=== PATIENT | female | born 1975 | race Caucasian/White ===

== ENCOUNTER 2021-12-24 20:20 | Emergency (ER) | payer MEDICARE, MEDICAID ==
[~2021-12-24] VITALS: Ht 154.9 cm; Wt 77.2 kg
[2021-12-24 20:24] VITALS: TEMP 98.2
[2021-12-24] MEDS ORDERED: PROVENTIL0.09 MG/A1 IH (22:03)
[2021-12-24] MEDS ORDERED: PREDNISONE50 MG PO (22:03)
[2021-12-24] MEDS ORDERED: ZITHROMAX500 M2 PO (22:03)
[2021-12-24 22:20] VITALS: BP 122/79; PULSE 103
== END 2021-12-24 22:20 | disposition home or self-care (01) ==
LOC: COL.ER 20:20
DX: J44.1 Chronic obstructive pulmonary disease with (acute) exacerbation (principal); J01.90 Acute sinusitis, unspecified; F17.210 Nicotine dependence, cigarettes, uncomplicated; Z28.310 Unvaccinated for COVID-19; Z88.0 Allergy status to penicillin
CPT/HCPCS: J7512

== ENCOUNTER 2023-12-13 10:18 | Day surgery (SDC) | payer MEDICARE, MEDICAID ==
[~2023-12-13] VITALS: Ht 154.9 cm; Wt 77.5 kg
[~2023-12-13 10:18] MED LIST: LR 1,000 ML IV SCH; PREDNISONE20 MG PO; PREDNISONE50 MG PO; PROVENTIL0.09 MG/A1 IH; ZITHROMAX500 M2 PO
[2023-12-13] MEDS ORDERED: BREZTRI AEROS10.7 GM IH (11:24)
[2023-12-13] MEDS ORDERED: ZOFRAN8 MG PO (11:25)
[2023-12-13] MEDS ORDERED: ADVIL200 MG PO (11:26)
[2023-12-13 11:33] VITALS: BP 134/67; PULSE 81; TEMP 98
--- NOTE | 2023-12-13 11:45 | NUR ---
Pt admitted to [facility], admission assessments complete. Consents signed. Pt signs waiver for test, reports that their is no chance she could be . Pt's partner at bedside. 20G IV inserted into right hand, LR infusing as ordered. Medications, allergies, and pharmacy confirmed. Questions answered. Cart in low position, call light within reach. Warm blanket given. Pt tearful at times, tissues and reassurance given.
[2023-12-13] MEDS ORDERED: diazePAM 10 MG TAB PO ONE (12:45)
[2023-12-13] MEDS ORDERED: fentaNYL 50 MCG/ML 2 ML VIAL ONE ×2 (13:14→15:02)
[2023-12-13] MEDS ORDERED: Lidocaine PF 2% (20 MG/ML) 5 ML VIAL ONE (13:14)
[2023-12-13] MEDS ORDERED: Ondansetron 4 MG/2 ML VIAL ONE (13:15)
[2023-12-13] MEDS ORDERED: NS 10 ML IV ONE (13:15)
[2023-12-13] MEDS ORDERED: Glycopyrrolate 0.2 MG/ML 1 ML VIAL ONE ×2 (13:15)
[2023-12-13] MEDS ORDERED: dexAMETHasone 10 MG/ML VIAL ONE (13:15)
[2023-12-13] MEDS ORDERED: Ketorolac 30 MG/ML VIAL ONE (13:15)
--- NOTE | 2023-12-13 13:17 | NUR ---
Patient becomes very upset regarding delay in surgery. Crying and yellowing. Significant other remains at bedside. Anesthesia and Periop Board Handler James in to speak with patient extensively. Orders for valium noted, see EMAR. Pt encouraged to rest with eyes shut and attempt to sleep. Reassurance and support given. Call light within reach.
[2023-12-13] MEDS ORDERED: Topical Skin Adhesive 1 EACH (1 ML) TOP ONE (14:36)
[2023-12-13] MEDS ORDERED: fentaNYL 50 MCG/ML 1 ML SYRINGE/VIAL [PACU/SDC ONLY] IV PRN (14:45)
[2023-12-13] MEDS ORDERED: HYDROmorphone 1 MG/1 ML SYRINGE [PACU/SDC ONLY] IV PRN (14:45)
[2023-12-13] MEDS ORDERED: Ondansetron 4 MG/2 ML VIAL IV PRN ×2 (14:45→15:45)
[2023-12-13] MEDS ORDERED: NORCO 325 MG-51 TAB PO (15:37)
[2023-12-13] MEDS ORDERED: Ibuprofen 600 MG TAB PO PRN (15:45)
[2023-12-13 16:10] VITALS: BP 140/71; PULSE 81
[2023-12-13 16:25] VITALS: BP 132/68; PULSE 78
[2023-12-13 16:34] VITALS: BP 126/70; PULSE 76; TEMP 97.4
--- NOTE | 2023-12-13 17:02 | NUR ---
1610- RECIEVED PT FROM BUSHWALKING GUIDE. VS OBTAINED. UNABLE TO ASSESS PT PAIN PT STATED SHE DID NOT KNOW HOW TO RATE PAIN. TOLEARTING SIPS OF WATER AND HAVING INCREASED COUGHING. 1625- PEANUT BUTTER AND CRACKERS GIVEN. AT BEDSIDE. PT REQUESTING TO DISCHARGE. 1633- IV REMOVED AND HELPED PT UP TO VOID. 1650- DISCHARGE TEACHING DONE WITH PT AND . ALL QUESTIONS ANSWERED. 1700- PT DISCHARGED FROM FACILITY VIA WHEELCHAIR TO PRIVATE VEHCILE DRIVEN BY SPOUSE.
== END 2023-12-13 17:00 ==
LOC: SDCO 10:18
DX: C44.509 Unspecified malignant neoplasm of skin of other part of trunk (principal); C77.9 Secondary and unspecified malignant neoplasm of lymph node, unspecified; C79.89 Secondary malignant neoplasm of other specified sites; F17.210 Nicotine dependence, cigarettes, uncomplicated
CPT/HCPCS: C1788; J0690; J1100; J1885; J2405; J2704; J3010; J7120

== ENCOUNTER 2024-01-12 21:02 | Emergency (ER) | payer MEDICARE, MEDICAID ==
[~2024-01-12] VITALS: Ht 154.9 cm; Wt 78.6 kg
[~2024-01-12 21:02] MED LIST changes: +ADVIL200 MG PO; +BREZTRI AEROS10.7 GM IH; -LR 1,000 ML IV SCH; +NORCO 325 MG-51 TAB PO; +ZOFRAN8 MG PO
[2024-01-12 21:09] VITALS: TEMP 98.3
[2024-01-12] MEDS ORDERED: Albuterol 0.083% Neb Soln 2.5 MG/3 ML UD IH ONE (21:30)
[2024-01-12] MEDS ORDERED: Ketorolac 15 MG/ML VIAL IV ONE (21:30)
[2024-01-12 22:13] LABS: HEMOGLOBIN 11.6 g/dl (12.5-16.0); MEAN CELL VOLUME 86 fl (80.0-100.0); MEAN CORPUSCULAR HEMOGLOBIN 29 pg (27-31); MEAN CORPUSCULAR HGB CONC 34 g/dl (33.0-37.0); MEAN PLATELET VOLUME 10.1 fl (7.4-10.4); PLATELET COUNT 87 K/mm3 (130-400); RED BLOOD COUNT 3.99 M/mm3 (4.10-5.30); REDCELL DISTRIBUTION WIDTH-CV 12.6 % (11.5-14.5)
[2024-01-12 22:19] LABS: PROTHROMBIN TIME 11.1 SECONDS (9.7-12.8)
[2024-01-12 22:21] LABS: PARTIAL THROMBOPLASTIN TIME 26.7 SECONDS (26.0-37.0)
[2024-01-12 22:27] LABS: ALBUMIN 3.2 g/dL (3.5-5.0); BILIRUBIN,TOTAL 0.3 mg/dL (0.2-1.2); CALCIUM 9.2 mg/dL (8.4-10.2); CREATININE, serum 0.76 mg/dL (0.57-1.11); POTASSIUM 3.4 mEq/L (3.5-4.5); TOTAL PROTEIN 6.7 g/dl (6.2-8.1)
[2024-01-12 22:32] LABS: TROPONIN-I 0.021 ng/mL (0.00-0.033)
[2024-01-12 22:43] LABS: HEMATOCRIT 34.2 % (37.0-47.0)
[2024-01-12 22:50] LABS: BAND 2 % (0-10); EOSINOPHIL 8 % (0-4); LYMPHOCYTE 58 % (20.0-51.0); NEUTROPHILS 28 % (42.0-75.2)
[2024-01-12] MEDS ORDERED: Iohexol 300 - 100 ML VIAL IV ONE (23:16)
[2024-01-12] MEDS ORDERED: NS 50 ML IV SCH (23:16)
[2024-01-12] MEDS ORDERED: HYDROmorphone 0.5 MG/0.5 ML SYRINGE IV ONE (23:30)
[2024-01-13] MEDS ORDERED: DOXYCYCLINE 10100 MG PO (00:57)
[2024-01-13] MEDS ORDERED: Doxycycline Monohydrate 100 MG CAP PO ONE (01:00)
[2024-01-13 01:05] VITALS: BP 138/79; PULSE 70
== END 2024-01-13 01:05 | disposition home or self-care (01) ==
LOC: COL.ER 21:02
PROVIDERS: Emergency Medicine
DX: J18.9 Pneumonia, unspecified organism (principal); C34.90 Malignant neoplasm of unspecified part of unspecified bronchus or lung
CPT/HCPCS: J1171; J1885; Q9967